=== PATIENT | female | born 2000 | race Caucasian/White ===

== ENCOUNTER 2022-05-23 10:25 | Emergency (ER) | payer OTHER ==
[~2022-05-23] VITALS: Ht 152.4 cm; Wt 59.9 kg
[2022-05-23] MEDS ORDERED: FLAG375C PO (10:48)
[2022-05-23] MEDS ORDERED: DOXY100C81 PO (10:48)
[2022-05-23 12:15] LABS: BASO % 0.2 % (0.0-1.0); EOS % 0.1 % (0.0-3.0); HEMATOCRIT 45.2 % (36.0-47.0); HEMOGLOBIN 14.8 g/dl (12.0-15.5); LYMPH % 19.8 % (24.0-44.0); MEAN CORPUSCULAR HGB CONC 32.7 g/dl (32.0-36.5); MEAN CORPUSCULAR VOLUME 91.5 fl (80.0-96.0); MONO # 0.7 10^3/uL (0.0-0.8); MONO % 6.5 % (2.0-8.0); NEUTROPHILS # 7.3 10^3/uL (1.5-8.5); NEUTROPHILS % 73.2 % (36.0-66.0); PLATELET COUNT, AUTOMATED 300 10^3/uL (150-450); RED BLOOD COUNT 4.94 10^6/uL (4.00-5.40)
[2022-05-23 12:36] LABS: HCG, SERUM QUANTITATIVE < 2.6 MIU/ML (<4.2); LIPASE 28 U/L (12-53)
[2022-05-23 12:39] LABS: ALBUMIN 4.4 G/DL (3.2-5.2); ALKALINE PHOSPHATASE 60 U/L (46-116); ALT/SGPT 19 U/L (7.0-40); AST/SGOT 24 U/L (<34); BILIRUBIN,DIRECT 0.2 MG/DL (<0.4); BILIRUBIN,TOTAL 0.7 MG/DL (0.3-1.2); BLOOD UREA NITROGEN 13 MG/DL (9-23); CALCIUM LEVEL 9.7 MG/DL (8.5-10.1); CARBON DIOXIDE LEVEL 26 MMOL/L (20-31); CHLORIDE LEVEL 104 MMOL/L (98-107); GLUCOSE, FASTING 93 MG/DL (60-100); POTASSIUM SERUM 4.7 MMOL/L (3.5-5.1); SODIUM LEVEL 138 MMOL/L (136-145); TOTAL PROTEIN 7.5 G/DL (5.7-8.2)
[2022-05-23 12:42] LABS: HCG, SERUM QUALITATIVE NEGATIVE (NEGATIVE)
[2022-05-23] MEDS ORDERED: diphenhydrAMINE 25MG CAP PO ONE (15:25)
[2022-05-23] MEDS ORDERED: predniSONE 20 MG TAB PO ONE (15:25)
[2022-05-23 15:55] VITALS: BP 123/73
[2022-05-23 17:01] LABS: GC DNA AMPLIFICATION NEGATIVE (NEGATIVE)
[2022-05-23] MEDS ORDERED: DIFL150T PO (17:26)
[2022-05-23] MEDS ORDERED: PRED20TA PO (17:26)
== END 2022-05-23 17:36 | disposition home or self-care (01) ==
LOC: M ED 10:25
DX: R21 Rash and other nonspecific skin eruption (principal); T50.905A Adverse effect of unspecified drugs, medicaments and biological substances, initial encounter; B37.31 Acute candidiasis of vulva and vagina; F17.200 Nicotine dependence, unspecified, uncomplicated; F10.10 Alcohol abuse, uncomplicated; Z79.52 Long term (current) use of systemic steroids; Z79.2 Long term (current) use of antibiotics; Z79.899 Other long term (current) drug therapy; Z88.8 Allergy status to other drugs, medicaments and biological substances
CPT/HCPCS: 36415; 76830; 76856; 80048; 80076; 81001; 83690; 84702; 84703; 85025; 86850; 87086; 87810; 87850; 93976; 99283; J7512

== ENCOUNTER 2023-03-27 11:44 | Outpatient (CLI) | payer OTHER ==
[~2023-03-27] VITALS: Ht 152.4 cm; Wt 70.9 kg
[~2023-03-27 11:44] MED LIST: DIFL150T PO; DOXY100C82 PO; FLAG375C PO; PRED20TA PO
[2023-03-27] MEDS ORDERED: LR 1,000 ML IV ONE (12:00)
[2023-03-27 12:01] VITALS: BP 136/72
[2023-03-27] MEDS ORDERED: ONDA4TAB6 PO (12:01)
[2023-03-27] MEDS ORDERED: ACET325C5 PO (12:01)
[2023-03-27] MEDS ORDERED: PRENTAB9 PO (12:01)
[2023-03-27 12:27] LABS: APPEARANCE, URINE HAZY (CLEAR); BACTERIA, URINE AUTO 1+ (NEGATIVE); BILIRUBIN, URINE AUTO NEGATIVE (NEGATIVE); BLOOD, URINE BLOOD NEGATIVE (NEGATIVE); COLOR, URINE YELLOW (YELLOW); GLUCOSE, URINE (UA) AUTO NEGATIVE (NEGATIVE); KETONE, URINE AUTO NEGATIVE (NEGATIVE); LEUKOCYTE ESTERASE, URINE AUTO NEGATIVE (NEGATIVE); MUCUS, URINE SMALL (NEGATIVE); NITRITE, URINE AUTO NEGATIVE (NEGATIVE); PROTEIN, URINE AUTO NEGATIVE (NEGATIVE); RBC, URINE AUTO 0 /HPF (0-3); SPECIFIC GRAVITY URINE AUTO 1.005 (1.002-1.035); SQUAMOUS EPITHELIAL CELL UR AU 8 /HPF (0-6); UROBILINOGEN, URINE AUTO 0.2 mg/dL (0.0-2.0); WBC, URINE AUTO 0 /HPF (0-3)
[2023-03-27 12:35] LABS: HEMATOCRIT 31.2 % (36.0-47.0); HEMOGLOBIN 10.2 g/dl (12.0-15.5); MEAN CORPUSCULAR HEMOGLOBIN 27.8 pg (27.0-33.0); MEAN CORPUSCULAR HGB CONC 32.7 g/dl (32.0-36.5); PLATELET COUNT, AUTOMATED 236 10^3/uL (150-450); RED BLOOD COUNT 3.67 10^6/uL (4.00-5.40); WHITE BLOOD COUNT 12.3 10^3/uL (4.0-10.0)
[2023-03-27 12:48] VITALS: BP 105/61
[2023-03-27] MEDS ORDERED: METOCLOPRAMIDE INJ 10MG/2ML VIAL IV ONE (12:50)
[2023-03-27] MEDS ORDERED: ACETAMINOPHEN 500 MG TAB PO ONE (12:50)
[2023-03-27] MEDS ORDERED: HOME MED LIST COMPLETE! XX SCH (13:05)
[2023-03-27 13:10] LABS: ALBUMIN 2.7 G/DL (3.2-5.2); ALKALINE PHOSPHATASE 107 U/L (46-116); ALT/SGPT 11 U/L (7.0-40); AST/SGOT 15 U/L (<34); BILIRUBIN,TOTAL 0.6 MG/DL (0.3-1.2); BLOOD UREA NITROGEN 7 MG/DL (9-23); CALCIUM LEVEL 8.6 MG/DL (8.5-10.1); CARBON DIOXIDE LEVEL 22 MMOL/L (20-31); CHLORIDE LEVEL 106 MMOL/L (98-107); GLUCOSE, FASTING 73 MG/DL (60-100); POTASSIUM SERUM 3.9 MMOL/L (3.5-5.1); SODIUM LEVEL 137 MMOL/L (136-145); TOTAL PROTEIN 6.1 G/DL (5.7-8.2)
[2023-03-27] MEDS ORDERED: BACLOFEN 10 MG TAB PO ONE (14:00)
== END 2023-03-27 14:57 | disposition home or self-care (01) ==
LOC: M LDO 11:44
PROVIDERS: ATTEND Obstetrics & Gynecology
DX: O26.893 Other specified pregnancy related conditions, third trimester (principal); N89.8 Other specified noninflammatory disorders of vagina; O99.820 Streptococcus B carrier state complicating pregnancy; O99.343 Other mental disorders complicating pregnancy, third trimester; F41.9 Anxiety disorder, unspecified; F32.A Depression, unspecified; O99.013 Anemia complicating pregnancy, third trimester; Z3A.34 34 weeks gestation of pregnancy; Z88.8 Allergy status to other drugs, medicaments and biological substances; Z79.899 Other long term (current) drug therapy
CPT/HCPCS: 36415; 59025; 76815; 80053; 81001; 85027; 86780; 86850; 86900; 86901; 96374; G0463; J2765

== ENCOUNTER 2023-04-21 14:46 | Outpatient (CLI) | payer OTHER ==
[~2023-04-21] VITALS: Ht 152.4 cm; Wt 69.4 kg
[~2023-04-21 14:46] MED LIST changes: +ACET325C5 PO; +ONDA4TAB6 PO; +PRENTAB9 PO
[2023-04-21] MEDS ORDERED: BUSP10TA PO (17:14)
[2023-04-21] MEDS ORDERED: COLA100C5 PO (17:14)
[2023-04-21] MEDS ORDERED: HOME MED LIST COMPLETE! XX SCH (17:15)
== END 2023-04-21 16:55 | disposition home or self-care (01) ==
LOC: M LDO 14:46
PROVIDERS: ATTEND Obstetrics & Gynecology
DX: O26.893 Other specified pregnancy related conditions, third trimester (principal); N89.8 Other specified noninflammatory disorders of vagina; Z3A.38 38 weeks gestation of pregnancy; R25.2 Cramp and spasm; O99.820 Streptococcus B carrier state complicating pregnancy; Z88.8 Allergy status to other drugs, medicaments and biological substances
CPT/HCPCS: 59025; 76815; G0463

== ENCOUNTER 2023-05-04 01:31 | Inpatient (IN) | payer OTHER ==
[2023-05-04] VITALS (25 sets, daily range): BP systolic 100–147; BP diastolic 57–87; O2SAT 98–100
[~2023-05-04] VITALS: Ht 152.4 cm; Wt 69.7 kg
[~2023-05-04 01:31] MED LIST changes: +BUSP10TA PO; +COLA100C5 PO
[2023-05-04] MEDS ORDERED: OXYTOCIN INJ 10UNITS/ML 1ML VIAL IV PRN (01:55)
[2023-05-04] MEDS ORDERED: LIDOCAINE 1% MDV 20ML VIAL INFIL PRN (01:55)
[2023-05-04] MEDS ORDERED: OXYTOCIN DRIP 30 UNITS in IV 1 EA IV PRN ×3 (01:55)
[2023-05-04] MEDS ORDERED: LR 1,000 ML IV SCH (01:55)
[2023-05-04] MEDS ORDERED: CARBOPROST TROMETHAMINE 250 MCG/ML AMP IM PRN (01:55)
[2023-05-04] MEDS ORDERED: OXYTOCIN INJ 10UNITS/ML 1ML VIAL IM PRN (01:55)
[2023-05-04] MEDS ORDERED: TRANEXAMIC ACID INJection 1,000 MG in NS 100 ML IV PRN (01:55)
[2023-05-04] MEDS ORDERED: METHYLERGONOVINE MALEATE 0.2MG/ML 1ML VIAL IM PRN (01:55)
[2023-05-04] MEDS ORDERED: HOME MED LIST COMPLETE! XX SCH (02:30)
[2023-05-04 02:52] LABS: HEMATOCRIT 33.2 % (36.0-47.0); HEMOGLOBIN 10.7 g/dl (12.0-15.5); MEAN CORPUSCULAR HEMOGLOBIN 26.5 pg (27.0-33.0); MEAN CORPUSCULAR HGB CONC 32.2 g/dl (32.0-36.5); MEAN CORPUSCULAR VOLUME 82.2 fl (80.0-96.0); PLATELET COUNT, AUTOMATED 279 10^3/uL (150-450); RED BLOOD COUNT 4.04 10^6/uL (4.00-5.40)
[2023-05-04] MEDS: LACTATED RINGER'S 1000 ML IV STA (02:56)
[2023-05-04] MEDS: PENICILLIN G POTASSIUM 5 MU IV 5 MU in D5W MINI-BAG PLUS 100 ML IV STA (02:56)
[2023-05-04] MEDS ORDERED: ePHEDrine SULFATE 25 MG/5 ML(5MG/ML) SYRINGE IVP PRN (04:00)
[2023-05-04] MEDS: BUTORPHANOL 2 MG/ML 1ML VIAL IV ONE (04:00)
[2023-05-04] MEDS: PROMETHAZINE 25MG/ML 1ML VIAL IV ONE (04:00)
[2023-05-04] MEDS ORDERED: diphenhydrAMINE 50MG/ML VIAL IV PRN (04:00)
[2023-05-04] MEDS ORDERED: NALOXONE INJ 0.4MG/1ML VIAL IV PRN (04:00)
[2023-05-04] MEDS ORDERED: EPIDURAL/PCA KEYS XX PRN (04:00)
[2023-05-04] MEDS ORDERED: LR 500 ML IV PRN (04:00)
[2023-05-04] MEDS: LR 1,000 ML IV SCH (04:51)
[2023-05-04] MEDS: FENTANYL/ROPIVACAINE/NACL BAG 100 ML EPIDURAL SCH (04:51)
[2023-05-04] MEDS: OXYTOCIN DRIP 30 UNITS in IV 1 EA IV SCH ×2 (05:17→09:38)
[2023-05-04] MEDS: PEN G POT 3,000,000 UNIT/50 ML 3,000,000 UNIT in IV 1 EA IV SCH (06:47)
[2023-05-04] MEDS ORDERED: ACETAMINOPHEN TAB 650MG DOSE (2X325MG) PO PRN (09:20)
[2023-05-04] MEDS ORDERED: IBUPROFEN 600MG TAB PO PRN (09:20)
[2023-05-04] MEDS ORDERED: METHYLERGONOVINE MALEATE 0.2 MG TAB PO PRN (09:20)
[2023-05-04] MEDS: IBUPROFEN 800 MG TAB PO PRN (11:47)
[2023-05-04] MEDS: SERTRALINE HCL 25 MG TABLET PO SCH (11:47)
[2023-05-04] MEDS: busPIRone 5 MG TAB PO SCH (11:48)
[2023-05-04] MEDS: DOCUSATE SODIUM 100MG CAPSULE PO PRN (12:12)
[2023-05-04] MEDS: ACETAMINOPHEN 500 MG TAB PO PRN (17:36)
[2023-05-05 06:00] VITALS: BP 118/71
[2023-05-05] MEDS: PRENATAL VITAMINS CHEWABLE TABLET PO SCH (08:33)
[2023-05-05] MEDS: DIBUCAINE 1% OINTMENT 30GM TOP PRN (08:33)
[2023-05-05] MEDS: ONDANSETRON 4MG 2ML VIAL IV PRN (10:49)
[2023-05-05 18:00] VITALS: BP 120/61; O2SAT 95
[2023-05-06 06:00] VITALS: BP 106/59; O2SAT 99
[2023-05-06] MEDS ORDERED: COLA100C5 PO (09:49)
[2023-05-06] MEDS ORDERED: SERT25TA21 PO (09:49)
[2023-05-06] MEDS ORDERED: ACET1TAB55 PO (09:49)
[2023-05-06] MEDS ORDERED: IBUP-1022 PO (09:49)
== END 2023-05-06 14:08 | disposition home or self-care (01) | DRG 807 ==
LOC: M LDO 01:31 → M LDI 02:02 → M OBS 11:30
PROVIDERS: ADMIT Obstetrics & Gynecology; ATTEND Advanced Practice Midwife
PROC: 10E0XZZ Delivery of Products of Conception, External Approach (ICD-10-PCS; principal; 2023-05-04)
PROC: 0HQ9XZZ Repair Perineum Skin, External Approach (ICD-10-PCS; 2023-05-04)
DX: O70.0 First degree perineal laceration during delivery (principal); Z37.0 Single live birth; O77.0 Labor and delivery complicated by meconium in amniotic fluid; Z3A.40 40 weeks gestation of pregnancy; O99.824 Streptococcus B carrier state complicating childbirth

== ENCOUNTER → 2024-12-13 | Outpatient (REF) | payer OTHER ==
[~2024-12-13] MED LIST changes: +ACET1TAB55 PO; +DOXY-442 PO; -DOXY100C82 PO; +IBUP600T42 PO; +ONDA-282 PO; -ONDA4TAB6 PO; +SERT25TA21 PO
[2024-12-13 16:44] LABS: Trichomonas vaginalis (AMP) NOT DETECTED (NEGATIVE)
[2024-12-13 17:07] LABS: GC DNA AMPLIFICATION NEGATIVE (NEGATIVE)
== END ==
LOC: M PLALAB 14:24
PROVIDERS: ATTEND Student in an Organized Health Care Education/Training Program
DX: Z34.80 Encounter for supervision of other normal pregnancy, unspecified trimester (principal)

== ENCOUNTER → 2025-01-10 | Outpatient (REF) | payer OTHER | LOC: M SFHCWAGY 13:08 | PROVIDERS: ATTEND Advanced Practice Midwife | DX: R82.90 Unspecified abnormal findings in urine (principal) ==